=== PATIENT | female | born 1960 | race Two or more races ===

== ENCOUNTER → 2019-11-09 | Emergency (ER) | payer MEDICAID ==
[~2019-11-09] VITALS: Ht 152.4 cm; Wt 85.7 kg
[~2019-11-09] MED LIST: ALPR0.25 PO; CYAN1TAB14 PO; FER325T PO; FOLI1TAB6 PO; LISI10TA6 PO; METF-370 PO; PANT40TA2 PO; SULF500T8 PO; SULI200T4 PO; TRAZ50TA2 PO; methylPREDNISolone SOD SUCC 125 MG/2 ML VL IM ONE
[2019-11-09 17:57] VITALS: BP 165/55
== END | disposition home or self-care (01) ==
LOC: ER 16:49
DX: M25.562 Pain in left knee (principal); I10 Essential (primary) hypertension; E11.9 Type 2 diabetes mellitus without complications; Z90.49 Acquired absence of other specified parts of digestive tract; Z87.39 Personal history of other diseases of the musculoskeletal system and connective tissue; Z88.1 Allergy status to other antibiotic agents; Z79.899 Other long term (current) drug therapy
CPT/HCPCS: 73562; 96372; 99283; J2930

== ENCOUNTER 2021-04-09 21:44 | Emergency (ER) | payer MEDICAID ==
[~2021-04-09] VITALS: Ht 152.4 cm; Wt 77.1 kg
[2021-04-09 21:44] VITALS: BP 156/64
[~2021-04-09 21:44] MED LIST changes: +LISI-716 PO; -LISI10TA6 PO; -SULI200T4 PO; +SULI200T5 PO; -methylPREDNISolone SOD SUCC 125 MG/2 ML VL IM ONE
[2021-04-09] MEDS ORDERED: ACETAMINOPHEN 325 MG TAB PO ONE (22:30)
== END 2021-04-10 00:31 | disposition left against medical advice (07) ==
LOC: ER 21:44
DX: R50.9 Fever, unspecified (principal); R19.7 Diarrhea, unspecified; R51.9 Headache, unspecified; Z53.21 Procedure and treatment not carried out due to patient leaving prior to being seen by health care provider

== ENCOUNTER 2022-08-30 12:40 | Emergency (ER) | payer MEDICAID ==
[~2022-08-30] VITALS: Ht 154.9 cm; Wt 90.0 kg
[2022-08-30] MEDS ORDERED: cloNIDine HCL 0.1 MG TAB PO ONE (13:45)
[2022-08-30 13:59] LABS: Basophils # (auto) 0 10 ^3/uL (0-0.2); Hematocrit 43.1 % (36.0-46.0); Monocytes # (auto) 0.4 10 ^3/uL (0-1.3)
[2022-08-30 14:01] LABS: Basophils % (auto) 0.4 % (0.0-2.0); Eosinophils # (auto) 0.1 10 ^3/uL (0-0.8); Eosinophils % (auto) 1.4 % (0.0-7.0); Hemoglobin 14.7 g/dL (12.2-16.2); Lymphocytes # (auto) 1.1 10 ^3/uL (0.4-5.4); Lymphocytes % (auto) 29.7 % (10.0-50.0); Mean Corpuscular Hgb Conc. 34.2 g/dL (32.0-36.0); Mean Corpuscular Volume 99.5 fL (80.0-100.0); Monocytes % (auto) 10.6 % (0.0-12.0); Neutrophils # (auto) 2.1 10 ^3/uL (1.6-8.6); Neutrophils % (auto) 57.9 % (37.0-80.0); Nucleated Red Blood Cells % 0.6 %; Red Blood Cells 4.34 10^6/uL (4.0-5.20); Red Cell Distribution Width 14.7 % (11.8-14.3); White Blood Cell 3.7 10^3/uL (4.4-10.8)
[2022-08-30 14:16] LABS: Albumin 3.1 g/dL (3.4-5.0); Calcium 8.6 mg/dL (8.5-10.1); Potassium 3.9 mmol/L (3.5-5.1)
[2022-08-30 14:21] LABS: BUN/Creatinine Ratio 23.1; Bilirubin, Total 1.8 mg/dL (0.2-1.0); Total Protein 7.4 g/dL (6.4-8.2)
[2022-08-30 16:54] LABS: Urine Bacteria FEW /hpf (None Seen); Urine Blood 3+ /uL (Negative); Urine Mucus FEW (None Seen); Urine Specific Gravity 1.022 (1.001-1.035); Urine WBC 78 /hpf (0 - 5)
[2022-08-30] MEDS ORDERED: NITR-87 PO (17:10)
[2022-08-30 20:38] VITALS: BP 190/71
== END 2022-08-30 21:04 | disposition home or self-care (01) ==
LOC: ER 12:40
DX: I10 Essential (primary) hypertension (principal); N39.0 Urinary tract infection, site not specified; E11.9 Type 2 diabetes mellitus without complications; R51.9 Headache, unspecified
CPT/HCPCS: 36415; 80053; 81001; 82962; 84484; 85025; 93005

== ENCOUNTER 2023-02-12 13:15 | Emergency (ER) | payer MEDICAID ==
[~2023-02-12] VITALS: Ht 154.9 cm; Wt 72.0 kg
[~2023-02-12 13:15] MED LIST changes: +FOLI-119 PO; -FOLI1TAB6 PO; -LISI-716 PO; +LISI10TA34 PO; +NITR-87 PO; +SULF500T57 PO; -SULF500T8 PO; -SULI200T5 PO; +SULI200T8 PO; +TRAZ-227 PO; -TRAZ50TA2 PO
[2023-02-12 14:07] LABS: Basophils # (auto) 0 10 ^3/uL (0-0.2); Basophils % (auto) 0.5 % (0.0-2.0); Eosinophils # (auto) 0.1 10 ^3/uL (0-0.8); Hemoglobin 12.7 g/dL (12.2-16.2); Lymphocytes # (auto) 1.2 10 ^3/uL (0.4-5.4); Monocytes # (auto) 0.4 10 ^3/uL (0-1.3); Nucleated Red Blood Cells % 0.2 %
[2023-02-12 14:09] LABS: Eosinophils % (auto) 1.4 % (0.0-7.0); Hematocrit 37.1 % (36.0-46.0); Lymphocytes % (auto) 31.3 % (10.0-50.0); Mean Corpuscular Hemoglobin 33.8 pg (28.0-32.0); Mean Corpuscular Hgb Conc. 34.3 g/dL (32.0-36.0); Mean Corpuscular Volume 98.7 fL (80.0-100.0); Monocytes % (auto) 10.7 % (0.0-12.0); Neutrophils # (auto) 2.1 10 ^3/uL (1.6-8.6); Neutrophils % (auto) 56.1 % (37.0-80.0); Red Blood Cells 3.76 10^6/uL (4.0-5.20); Red Cell Distribution Width 13.9 % (11.8-14.3); White Blood Cell 3.8 10^3/uL (4.4-10.8)
[2023-02-12 14:31] LABS: Albumin 2.6 g/dL (3.4-5.0); Calcium 8.3 mg/dL (8.5-10.1); Potassium 4.1 mmol/L (3.5-5.1)
[2023-02-12 14:34] LABS: BUN/Creatinine Ratio 22.7 (10.0-20.0); Bilirubin, Total 1.2 mg/dL (0.2-1.0); Total Protein 6.4 g/dL (6.4-8.2)
[2023-02-12 15:41] LABS: Urine Bacteria NONE SEEN /hpf (None Seen); Urine Blood 2+ /uL (Negative); Urine Hyaline Cast MANY /lpf (0 - 2); Urine Specific Gravity 1.029 (1.001-1.035); Urine WBC 57 /hpf (0 - 5)
[2023-02-12 17:20] VITALS: BP 122/63; PULSE 54; RESP 18; TEMP 97.9; O2SAT 99
[2023-02-12] MEDS ORDERED: NITR-87 PO (17:24)
== END 2023-02-12 18:58 | disposition left against medical advice (07) ==
LOC: ER 13:15
DX: N39.0 Urinary tract infection, site not specified (principal); E80.6 Other disorders of bilirubin metabolism; I10 Essential (primary) hypertension; E11.9 Type 2 diabetes mellitus without complications; Z90.49 Acquired absence of other specified parts of digestive tract
CPT/HCPCS: 36415; 70450; 74176; 80053; 81001; 84484; 85025; 93005

== ENCOUNTER → 2023-03-26 | Day surgery (SDC) | payer MEDICAID ==
[~2023-03-26] VITALS: Ht 154.9 cm; Wt 94.8 kg
[~2023-03-26] MED LIST changes: +ACET-6 PO; -ALPR0.25 PO; +AMLO1TAB22 PO; +CLON0.2T PO; -CYAN1TAB14 PO; +DICL1GEL73 TD; -FER325T PO; +FLUMAZENIL 0.1 MG/ML INJ 10ML MDV IV ONE; +FURO20TA3 PO; +LACT10PA2 PO; +LIDOCAINE VISCOUS 2% 15ML UD PO ONE; +LISI-285 PO; -LISI10TA34 PO; -METF-370 PO; +MIDAZOLAM HCL 2MG/2ML 2ml VIAL (1mg/ml) IV ONE; +NALOXONE HCL 0.4 MG/ML VIAL IV ONE; -NITR-87 PO; -PANT40TA2 PO; -SULF500T57 PO; -SULI200T8 PO; -TRAZ-227 PO; +URSO300C2 PO; +[UNRECOGNIZED DRUG - CODE] PO; +fentaNYL CITRATE 100 MCG/2 ML VL IV ONE
== END | disposition home or self-care (01) ==
LOC: CATH 07:09
PROVIDERS: ATTEND Internal Medicine
DX: I05.0 Rheumatic mitral stenosis (principal); Z53.8 Procedure and treatment not carried out for other reasons; D69.6 Thrombocytopenia, unspecified
CPT/HCPCS: J2250